=== PATIENT | male | born 1955 | race Caucasian/White ===

== ENCOUNTER 2017-07-03 07:20 | Emergency (ER) | payer BC ==
[~2017-07-03] VITALS: Ht 180.3 cm; Wt 97.5 kg
[~2017-07-03 07:20] MED LIST: ANCEF1 GM/50 ML IV; ASPIR 8181 MG ORAL; COLACE100 MG ORAL; CYMBALTA60 MG ORAL; JENTADUETO 2.51 EAC2 PO; LEVOTHYROXINE100 MCG ORAL; LOVAZA1 GM ORAL; METFORMIN HCL1000 M1 ORAL; METFORMIN HCL500 M1 ORAL; NORCO 5-325 TA1 EACH ORAL; QUETIAPINE FUMA25 MG ORAL; XANAX2 MG ORAL
[2017-07-03 07:51] VITALS: BP 148/79
[2017-07-03] MEDS ORDERED: Pseudoephedrine 30mg tab ORAL ONE (08:45)
[2017-07-03] MEDS ORDERED: AUGMENTIN 875-1 EAC1 ORAL (08:45)
[2017-07-03] MEDS ORDERED: PSEUDOEPHEDRINE60 MG PO (08:45)
[2017-07-03 09:00] VITALS: BP 148/79
--- NOTE | 2017-07-03 09:04 | Emergency Room Report ---
History of Present Illness General Chief Complaint: Headache Source: Patient Present Illness HPI 61-year-old male presents with 1 month of intermittent left-sided sinus pain and pressure. He has seen 2 ENT doctors who told him he has chronic sinusitis. He took a round of antibiotics for 10 days earlier in the month, doesn't remember the name. When I asked patient to call his pharmacy patient became very agitated, started yelling at me and staff. During history of present illness, LAURA GUERRA called for patient in ICU. Apologized to patient that I had to go to ICU, patient cursed me out again. When I came back to resume HPI, patient combative, yelling at RNs. He states he tried flonase, neti pot with no relief. He had "a drain done twice" in ENT office. Allergies: Coded Allergies: No Known Allergies (Unverified , 07/21/13) Patient History Past Medical History: other - chronic sinusitis Past Surgical History: none Pertinent Family History: none Social History: Denies: smoking, alcohol use, drug use Immunizations: UTD Reviewed Nursing Documentation: PMH: Agreed, PSxH: Agreed Nursing Documentation-PMH Hx Cardiac Problems: Yes Hx Hypertension: Yes Hx Diabetes: Yes Hx Cancer: No Hx Gastrointestinal Problems: No History Of Psychiatric Problem: Yes - anxiety disorder Hx Neurological Problems: No Hx Cerebrovascular Accident: No - THYROID Review of Systems All Other Systems: negative except mentioned in HPI Physical Exam Vital Signs Date Time Temp Pulse Resp B/P (MAP) Pulse Ox O2 Delivery O2 Flow Rate FiO2 07/03/17 07:41 97.9 96 22 159/81 93 Room Air 97.9 Sp02 EP Interpretation: reviewed, normal General Appearance: normal inspection, well appearing, no apparent distress, alert, GCS 15, non-toxic, other - combative, rude behavior Head: normocephalic, atraumatic Eyes: bilateral eye PERRL, bilateral eye EOMI ENT: normal ENT inspection, hearing grossly normal, normal pharynx, no angioedema, normal voice, TMs + canals normal, uvula midline, moist mucus membranes Neck: normal inspection, full range of motion, supple, thyroid normal, no meningismus, no bony tend Respiratory: normal inspection, lungs clear, normal breath sounds, no rhonchi, no respiratory distress, no retraction, no accessory muscle use, no wheezing, speaking full sentences Cardiovascular #1: regular rate, rhythm, no edema, no JVD, normal capillary refill Gastrointestinal: normal inspection, normal bowel sounds, non tender, soft, no mass, no peritonitis, non-distended, no guarding, no hernia, no pulsatile mass Genitourinary: no CVA tenderness Musculoskeletal: normal inspection, back normal, normal range of motion, no calf tenderness, pelvis stable, Piyush's Sign negative Neurologic: normal inspection, alert, oriented x3, responsive, 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 III-XII nml as tested, motor strength/tone normal, cerebellar normal, normal gait, speech normal Psychiatric: normal inspection, judgement/insight normal, mood/affect normal, no suicidal/homicidal ideation, no delusions Skin: normal inspection, normal color, no rash Lymphatic: normal inspection, no adenopathy Medical Decision Making Diagnostic Impression: Primary Impression: Headache Qualified Codes: R51 - Headache Additional Impression: Sinusitis Qualified Codes: J32.1 - Chronic frontal sinusitis ER Course VSS, afebrile Given patient's history likely continued chronic sinusitis I'm not sure which medication patient took before but per up-to-date treatment with antibiotics includes Augmentin He also endorses eustachian tube dysfunction states he has Flonase at home Was given dose of Sudafed and also prescription for Sudafed as well Advised follow up with ENT After DC, patient approached RN zack again, yelling at devulcanizer charger Katie, refused to leave ER. When I came to see why he was yelling and to diffuse situation, multiple threats of bodily harm made by patient to me. At this time, due to threats, we advised patient to leave ER or we would have to call [employer] Patient then walked out of ER with paperwork ER course: Patient has remained stable during ED stay. Disposition: Patient is to be discharged to home. Prescriptions given are sudafed, augmentin Patient is instructed to follow up with their primary care doctor within 5 days. Patient is instructed to follow up with ENT within 3 days. Strict return precautions discussed with patient such as fever, chills, worsening/severe pain, nausea, vomiting, which may indicate severe illness. Patient verbalizes understanding and agrees with plan. Please note that this Emergency Department Report was dictated using [employer] software, occasionally this can lead to erroneous entry secondary to interpretation by the dictation equipment Last Vital Signs Date Time Temp Pulse Resp B/P (MAP) Pulse Ox O2 Delivery O2 Flow Rate FiO2 07/03/17 07:51 97.9 78 18 148/79 95 Room Air 97.9 Status: improved Disposition: HOME, SELF-CARE Condition: Improved Scripts Amoxicillin/Potassium Clav 875-125* (AUGMENTIN 875-125 TABLET*) 1 Each Tablet 1 TAB ORAL TWICE A DAY for 10 Days, #20 TAB Prov: ELZBIETA MARTINEZ M.D. 07/03/17 Pseudoephedrine Hcl* (SUDAFED*) 60 Mg Tablet 60 MG PO Q8H for 3 Days, #20 TAB Prov: ELZBIETA MARTINEZ M.D. 07/03/17 Referrals: CIERRA STARR (PCP) Patient Instructions: Sinus Headache ELZBIETA MARTINEZ M.D. Jul 03, 2017 09:03
== END 2017-07-03 09:04 | disposition home or self-care (01) ==
LOC: EMR 08:00
DX: R51 Headache (principal); J32.9 Chronic sinusitis, unspecified; I10 Essential (primary) hypertension; E11.9 Type 2 diabetes mellitus without complications
CPT/HCPCS: 99284

== ENCOUNTER 2017-12-14 10:02 | Outpatient (CLI) | payer BC ==
[~2017-12-14 10:02] MED LIST changes: +AUGMENTIN 875-1 EAC1 ORAL; +PSEUDOEPHEDRINE60 MG PO
--- NOTE | 2017-12-14 15:19 | Diagnostic Imaging Report ---
Indication: History of renal stone. Right flank pain Technique: Continuous helical transaxial imaging of the abdomen and pelvis was obtained from the lung bases to the pubic symphysis before and during multiple phases of intravenous contrast administration. Coronal 2-D reformats were also obtained. Study obtained in a Siemens sensation [address] Automatic Exposure Control was utilized. Total Dose length Product (DLP): [address] Dose Index Volume (CTDIvol): 0.15, 19.88, 8.11, 64.89, 20.64, 20.15, 19.88 mGy Comparison: None Findings: Noncontrast images show a nonobstructive stone in the lower pole the right kidney measuring approximately 8 mm. There is no hydronephrosis. Upon contrast administration, both kidneys enhance symmetrically during arterial and venous phases. During excretory phase the calyces, renal pelvis and ureters appear normal. There is no hydroureteronephrosis. Urinary bladder is unremarkable in appearance. There is no mass identified. There is mild perinephric stranding the nature of which is not known. The lung bases are clear. Small hiatal hernia noted. Mild to moderate arterial calcifications are present within the aorta and iliac arteries. No free fluid identified. The appendix is not seen. There are bilateral inguinal hernias containing fat. IMPRESSION: Nonobstructive 8 mm stone within the lower pole the right kidney. Atherosclerotic vascular disease. Tiny umbilical hernia containing fat. Moderate size bilateral inguinal hernias containing fat. The CT scanner at [facility] is accredited by the [employer] and the scans are performed using protocols designed to limit radiation exposure to as low as reasonably achievable to attain images of sufficient resolution adequate for diagnostic evaluation.
== END 2017-12-14 12:02 | disposition home or self-care (01) ==
LOC: CAT 10:02
DX: R10.9 Unspecified abdominal pain (principal); N20.0 Calculus of kidney; K42.9 Umbilical hernia without obstruction or gangrene; K40.20 Bilateral inguinal hernia, without obstruction or gangrene, not specified as recurrent; I70.90 Unspecified atherosclerosis; E78.5 Hyperlipidemia, unspecified; I10 Essential (primary) hypertension; E11.9 Type 2 diabetes mellitus without complications; F52.21 Male erectile disorder; F41.9 Anxiety disorder, unspecified; R00.0 Tachycardia, unspecified; E29.1 Testicular hypofunction; E53.8 Deficiency of other specified B group vitamins; M51.9 Unspecified thoracic, thoracolumbar and lumbosacral intervertebral disc disorder
CPT/HCPCS: 74178; Q9967